=== PATIENT | male | born 1940 | race Caucasian/White ===

== ENCOUNTER → 2016-12-26 | Outpatient (CLI) | payer MEDICARE ==
[~2016-12-26] MED LIST: ALPRAZOLAM0.25 MG PO; LEVOTHYROXIN0.125 M2 PO; MAXZIDE 25 MG-31 TAB PO; ZOCOR40 MG PO
[2016-12-26 09:23] LABS: BUN 16 mg/dL (7-18); GFR (ESTIMATED) 82 ML/MIN (>60)
--- NOTE | 2016-12-26 15:41 | RADIOLOGY REPORT PS360 ---
CTA ABD/PELVIS HISTORY: Follow-up abdominal aortic aneurysm AAA ORDERING PHYSICIAN: SCOTT CAO MD PATIENT AGE: 76 years TECHNIQUE: Helical acquisition obtained following the bolus administration of 60 mL of Isovue 370 followed by a saline bolus. Axial, sagittal, and coronal reformatted images are generated and reviewed. COMPARISON: 12/29/2015 FINDINGS: CT angiographic findings: Fusiform aneurysmal dilatation of the immediate infrarenal portion of the abdominal aorta measuring up to 4 cm transverse and 4 cm AP not significantly changed.. A moderate amount of intramural thrombus is present along the anterior right aspect of the aneurysm as before. There is tortuosity of the abdominal aorta. The aorta tapers to 2 cm in diameter in the mid aortic region 4.8 cm below the level the renal arteries. There is minimal ectasia of the aorta just distal to this area proximal to the bifurcation 2.3 cm. Proximal left common iliac is 2.2 cm and proximal right common iliac is 1.4 cm. Atheromatous calcification noted in the iliacs bilaterally and in the abdominal aorta. Calcific plaque is present in the proximal aspect of the renal arteries. Nonvascular findings: Small hepatic cysts are once again noted and unchanged. The spleen, pancreas, adrenal glands, and kidneys have an unremarkable appearance. Moderate amount retained colonic feces noted. No intestinal obstruction or free air. No pelvic mass or abnormal fluid collection. There is a small umbilical hernia and small supraumbilical hernia containing fat. IMPRESSION: 1. 4 cm fusiform infrarenal abdominal aortic aneurysm unchanged. 2. Dilated proximal left common iliac at 2 cm unchanged. 3. Other nonacute findings as described above.
== END ==
LOC: RAD 08:53
PROVIDERS: Thoracic Surgery (Cardiothoracic Vascular Surgery)
DX: I71.4 Abdominal aortic aneurysm, without rupture (principal)
CPT/HCPCS: Q9967